=== PATIENT | female | born 2005 | race Caucasian/White ===

== ENCOUNTER 2024-03-13 18:52 | Emergency (ER) | payer MEDICAID, SELFPAY ==
[2024-03-13 19:10] VITALS: BP 140/99; PULSE 108; RESP 15; TEMP 36.8; O2SAT 100; BMI 18.8
--- NOTE | 2024-03-13 19:17 | ECG_ITS ---
[facility] Test Date: 2024-03-13 Pat Name: Janeen Callahan Department: Room: Gender: Female Rn Intern: : 2005 Requested By: Scot Fitzpatrick Order Number: [id number] Hutchins MD: Javon Lozano M.D. Measurements Intervals [place] Rate: 115 P: 83 W[place]: 158 QRS: 75 QRSD: 94 T: 33 QT: 310 QTc: 430 Interpretive Statements SINUS TACHYCARDIA LEFT ATRIAL ENLARGEMENT [-0.15mV P-WAVE IN V1/V2] NONSPECIFIC ST & T-WAVE ABNORMALITY No previous ECG available for comparison Electronically Signed On 03-14-2024 13:54:20 SIDE PANEL HANGER by Javon Lozano M.D. [email or web address]
--- NOTE | 2024-03-13 19:57 | XRR_ITS ---
PROCEDURE INFORMATION: Exam: XR Chest Exam date and time: 03/13/2024 8:04 PM Age: 18 years old Clinical indication: Pain; Chest pressure; Additional info: Cp TECHNIQUE: Imaging protocol: Radiologic exam of the chest. Views: 1 view. COMPARISON: No relevant prior studies available. FINDINGS: Lungs: Unremarkable. No consolidation. Pleural spaces: Unremarkable. No pleural effusion. No pneumothorax. Heart/Mediastinum: Unremarkable. No cardiomegaly. Bones/joints: Unremarkable. XR/XR chest 1V portable [id number] IMPRESSION: No acute findings.
[2024-03-13 19:58] VITALS: BP 136/84; PULSE 94; RESP 16; O2SAT 99
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
[2024-03-13 20:34] VITALS: BP 131/83; PULSE 91; O2SAT 99
== END 2024-03-13 20:35 | disposition home or self-care (01) ==
PROVIDERS: Emergency Provider Physician Assistant
DX: R07.9 Chest pain, unspecified (principal)
CPT/HCPCS: 71045; 93005; 99284

== ENCOUNTER 2024-12-10 01:25 | Emergency (ER) | payer MEDICAID, SELFPAY ==
[2024-12-10 01:33] VITALS: BP 116/78; PULSE 99; RESP 17; TEMP 37.1; O2SAT 100; BMI 17.2
--- NOTE | 2024-12-10 02:05 | W.ED.FEMALGU ---
HPI - Female Genitourinary General: Chief complaint: Urogenital-Female Stated complaint: Bleeding when going to the restroom. Time Seen by Provider: 12/10/24 01:45 History of Present Illness: 19-year-old female with no documented past medical problems presents after a single episode of grossly dark red urine about one hour prior to ED arrival. She reports no dysuria; urine had been clear earlier in the day. Immediately after voiding she developed dizziness, tunnel vision, and a sensation of impending syncope that resolved within minutes without loss of consciousness. Similar presyncopal feelings have occurred intermittently over recent months and seem temporally related to voiding, though never this severe. She denies abdominal pain, flank pain, fever, nausea, vomiting, chest pain, shortness of breath, or trauma. She endorses severe anxiety about recurrent symptoms and is hesitant to void again for fear of passing out. Date of Last Menstrual Period: 11/10/24 Related Data Allergies Allergy/AdvReac Type Severity Reaction Status Date / Time No Known Allergies Allergy Verified 03/13/24 19:25 [facility] ED Female Reproductive History: Date of last menstrual period: 11/10/24 Physical Exam Const: COMMON NORMALS: no acute distress, patient oriented x3 and alert HENMT: COMMON NORMALS: normocephalic and atraumatic HEAD & SCALP: normocephalic and atraumatic Eye: COMMON NORMALS: Equal, round and reactive pupils present, EOMs intact bilaterally and no scleral icterus PUPIL: Yes Equal, round and reactive pupils present Resp: COMMON NORMALS: normal respiratory effort and No retractions Cardio: COMMON NORMALS: regular rate, regular rhythm and No murmurs present (Cardio) RATE: regular rate RHYTHM: regular rhythm GI: COMMON NORMALS: Normal to inspection, nondistended, normoactive bowel sounds present, Soft to palpation and non-tender PALPATION: Yes Soft to palpation Neuro: COMMON NORMALS: patient oriented x3 SENSORIUM/ORIENTATION: Yes alert Psych: OTHER: anxious Skin: COMMON NORMALS: no rashes or lesions noted GENERAL SKIN EXAM: no rashes or lesions noted Course Vital Signs: Vital signs: Vital Signs Temperature 98.8 F 12/10/24 01:33 Pulse Rate 96 12/10/24 03:10 Respiratory Rate 17 12/10/24 01:33 Blood Pressure 109/7 12/10/24 03:10 Pulse Oximetry 100 12/10/24 03:10 Oxygen Delivery Me thod Room Air 12/10/24 02:30 MDM - Female Medical Decision Making Patient presents with one episode of what appeared to be gross hematuria accompanied by dizziness and near-syncope; no pain or other urinary symptoms. Similar but milder presyncopal episodes have occurred previously in association with voiding. Differential diagnosis centers on transient micturition syncope versus anxiety-induced presyncope. Other considerations include urinary tract infection, nephrolithiasis, glomerular disease, or menstrual blood contamination, though absence of pain or dysuria lowers likelihood of infection or stone. Diagnostics planned: bedside urine test and urinalysis. No blood work per patient preference. Will obtain urine sample with nursing assistance while monitoring for presyncope. Intravenous fluids available as needed. Disposition home if studies are unremarkable and symptoms do not recur. Lab Data Laboratory Results HCG, Qual Negative (Negative) 12/10/24 02:00 Urine Color Coats (Yellow) A 12/10/24 02:00 Urine Appearance Cloudy (CLEAR) A 12/10/24 02:00 Urine pH 5.0 (5-7) 12/10/24 02:00 Ur Specific [place] 1.034 (1.005-1.030) H 12/10/24 02:00 Urine Protein 1+ (Negative) A 12/10/24 02:00 Urine Glucose (UA) Negative (Normal) 12/10/24 02:00 Urine Ketones Trace (Negative) 12/10/24 02:00 Urine Blood 3+ (Negative) A 12/10/24 02:00 Urine Nitrate Negative (Negative) 12/10/24 02:00 Urine Bilirubin Negative (Negative) 12/10/24 02:00 Urine Urobilinogen 1.0 mg/dL (Negative) 12/10/24 02:00 Ur Leukocyte Esterase Trace (Negative) A 12/10/24 02:00 Urine RBC >100 /hpf (0-2) H 12/10/24 02:00 Urine WBC 0-5 /hpf (0-5) 12/10/24 02:00 Ur Squamous Epith Cells 6-10 /hpf (0-5) 12/10/24 02:00 Amorphous Sediment Not Reportable 12/10/24 02:00 Urine Bacteria None seen /hpf (NONE) 12/10/24 02:00 Hyaline Casts 2.46 /lpf 12/10/24 02:00 No radiology studies performed this visit Discharge Plan Discharge Patient Disposition: Home Clinical Impression: Near syncope Condition: Stable Discharge Orders: Discharge ED (Routine); Ordered 12/10/24 Ordered By: Ernie Jane Discharge Diet: Usual diet Discharge Activity: Increase activity as tolerated Patient Instructions: Syncope (ED), Patient Portal & Pema Instructions Activity Restrictions/Additional Instructions: Your urine test is reassuring with no evidence of infection or evidence of other emergency. Print Language: Dominican Coding Level of Care Code ED Wafer Batter Mixer for Leticia [facility]
[2024-12-10 02:10] VITALS: BP 109/73; PULSE 104; O2SAT 100
[2024-12-10 02:13] LABS: Glucose Urine UA Negative (Normal); Nitrate Urine Negative (Negative)
[2024-12-10 02:14] LABS: HCG Qualitative Urine. Negative (Negative)
[2024-12-10 02:17] LABS: Add Urine Microscopic? YES
[2024-12-10 02:18] LABS: Specific Gravity, Urine 1.034 (1.005-1.030)
[2024-12-10 02:30] VITALS: BP 109/73; PULSE 95; O2SAT 99
[2024-12-10 03:10] VITALS: BP 109/7; PULSE 96; O2SAT 100
== END 2024-12-10 03:11 | disposition home or self-care (01) ==
PROVIDERS: Emergency Provider Student in an Organized Health Care Education/Training Program
DX: R55 Syncope and collapse (principal); R31.9 Hematuria, unspecified
CPT/HCPCS: 81001; 81025; 87086; 99283